=== PATIENT | female | born 1985 | race Caucasian/White ===

== ENCOUNTER 2018-11-15 11:27 | Emergency (ER) | payer OTHER ==
[~2018-11-15] VITALS: Ht 154.9 cm; Wt 63.5 kg
== END 2018-11-15 16:21 | disposition home or self-care (01) ==
LOC: ER 11:27
DX: T54.91XA Toxic effect of unspecified corrosive substance, accidental (unintentional), initial encounter (principal); R11.11 Vomiting without nausea

== ENCOUNTER 2021-08-12 09:08 | Outpatient (CLI) | payer OTHER | END 2021-08-12 09:50 | disposition home or self-care (01) | LOC: PRENATAL 09:08 | PROVIDERS: ATTEND Obstetrics & Gynecology Maternal & Fetal Medicine | DX: O35.0XX0 Maternal care for (suspected) central nervous system malformation in fetus, not applicable or unspecified (principal); O35.3XX0 Maternal care for (suspected) damage to fetus from viral disease in mother, not applicable or unspecified; O09.519 Supervision of elderly primigravida, unspecified trimester ==

== ENCOUNTER 2021-08-31 08:26 | Outpatient (CLI) | payer OTHER | END 2021-08-31 09:11 | disposition home or self-care (01) | LOC: PRENATAL 08:26 | PROVIDERS: ATTEND Obstetrics & Gynecology Maternal & Fetal Medicine | DX: O35.0XX0 Maternal care for (suspected) central nervous system malformation in fetus, not applicable or unspecified (principal); O35.3XX0 Maternal care for (suspected) damage to fetus from viral disease in mother, not applicable or unspecified; O09.519 Supervision of elderly primigravida, unspecified trimester ==